=== PATIENT | male | born 1985 | race Asian ===

== ENCOUNTER 2017-02-07 07:44 | Emergency (ER) | payer OTHER ==
[~2017-02-07] VITALS: Ht 177.8 cm; Wt 71.5 kg
[2017-02-07 07:46] VITALS: Ht 177.8 cm; Wt 71.5 kg
[2017-02-07 08:49] LABS: ABNORMAL IP MESSAGE 1; BASOPHILS % 0.3 % (0.0-2.0); EOSINOPHILS # 0.1 10^3/ul (0.0-0.5); EOSINOPHILS % 1.8 % (0.0-7.0); HEMATOCRIT 39.9 % (42.0-52.0); HEMOGLOBIN 13.6 g/dl (14.0-18.0); LYMPHOCYTES # 1.7 10^3/ul (0.8-2.9); LYMPHOCYTES % 24.6 % (15.0-51.0); MEAN CORPUSCULAR HGB CONC 34.1 g/dl (32.0-37.0); MEAN CORPUSCULAR VOLUME 88.1 fl (82.0-101.0); MEAN PLATELET VOLUME 11.4 fl (7.4-10.4); MONOCYTE # 0.6 10^3/ul (0.3-0.9); MONOCYTES % 8.5 % (0.0-11.0); NEUTROPHIL # 4.4 10^3/ul (1.6-7.5); NEUTROPHILS % 64.7 % (39.0-77.0); PLATELET COUNT 91 10^3/UL (140-415); POSITIVE DIFF @See below; RED BLOOD COUNT 4.53 10^6/ul (4.70-6.10); RED CELL DISTRIBUTION WIDTH 11.6 % (11.5-14.5); WHITE BLOOD COUNT 6.8 10^3/ul (4.8-10.8)
[2017-02-07] MEDS ORDERED: SOD CHLORIDE 0.9% 1,000 ML IV STA (08:58)
--- NOTE | 2017-02-07 09:02 | ERD ---
ER Documentation Chief Complaint Date/Time DATE: 02/07/17 TIME: 09:02 Chief Complaint heavy rectal bleeding x this am Hemorrhoidectomy x 6 days ago HPI 31-year-old male status post hemorrhoidectomy [address] Eldridge at [facility], presenting with complaints of rectal bleeding this morning. Since the surgery, he has had some mild bleeding but this morning it was much more severe. He had a bowel movement with heavy bleeding from his rectum but he is unable to quantify how much. Currently the bleeding has stopped. He denies any abdominal pain. No fevers or chills. He has not tried to contact his surgeon's office. He denies any shortness of breath or dizziness. ROS All systems reviewed and are negative except as per history of present illness. Medications Home Meds No Active Prescriptions or Reported Meds Allergies Allergies: Coded Allergies: No Known Allergy (Unverified , 02/07/17) PMhx/Soc History of Surgery: Yes (hemorroidectomy) Anesthesia Reaction: No Hx Neurological Disorder: No Hx Respiratory Disorders: No Hx Cardiac Disorders: No Hx Psychiatric Problems: No Hx Miscellaneous Medical Probl: No Hx Alcohol Use: No Hx Substance Use: No Hx Tobacco Use: No Smoking Status: Never smoker FmHx Family History: No coronary disease, No diabetes Physical Exam Vitals Vital Signs Date Time Temp Pulse Resp B/P Pulse Ox O2 Delivery O2 Flow Rate FiO2 02/07/17 09:53 97.9 99 18 141/65 100 Room Air 02/07/17 07:46 98.3 83 20 93/59 97 Physical Exam Const: Ill-appearing, no apparent distress, nontoxic Head: Atraumatic Eyes: Normal Conjunctiva ENT: Normal External Ears, Nose and Mouth. Neck: Full range of motion. No meningismus. Resp: Clear to auscultation bilaterally Cardio: Regular rate and rhythm, no murmurs Abd: Soft, non tender, non distended. Normal bowel sounds Skin: No petechiae or rashes Back: No midline or flank tenderness Rectal: No active bleeding from the rectum, no external hemorrhoids Ext: No cyanosis, or edema Neur: Awake and alert Psych: Normal Mood and Affect Result Diagram: 02/07/17 0913 02/07/17 0815 Results 24 hrs Laboratory Tests Test 02/07/17 08:15 02/07/17 09:13 White Blood Count 6.810^3/ul Red Blood Count 4.5310^6/ul Hemoglobin 13.6g/dl Hematocrit 39.9% Mean Corpuscular Volume 88.1fl Mean Corpuscular Hemoglobin 30.0pg Mean Corpuscular Hemoglobin Concent 34.1g/dl Red Cell Distribution Width 11.6% Platelet Count 9110^3/UL 75571^3/UL Mean Platelet Volume 11.4fl Neutrophils % 64.7% Lymphocytes % 24.6% Monocytes % 8.5% Eosinophils % 1.8% Basophils % 0.3% Nucleated Red Blood Cells % 0.0/100WBC Neutrophils # 4.410^3/ul Lymphocytes # 1.710^3/ul Monocytes # 0.610^3/ul Eosinophils # 0.110^3/ul Basophils # 0.010^3/ul Nucleated Red Blood Cells # 0.010^3/ul Prothrombin Time 13.1Sec Prothrombin Time Ratio 1.0 INR International Normalized Ratio 0.99 Activated Partial Thromboplast Time 28.6Sec Sodium Level 141mmol/L Potassium Level 4.0mmol/L Chloride Level 106mmol/L Carbon Dioxide Level 24mmol/L Anion Gap 15 Blood Urea Nitrogen 13mg/dl Creatinine 1.13mg/dl Glucose Level 109mg/dl Calcium Level 9.2mg/dl Total Bilirubin 0.9mg/dl Direct Bilirubin 0.00mg/dl Indirect Bilirubin 0.9mg/dl Aspartate Amino Transf (AST/SGOT) 19IU/L Alanine Aminotransferase (ALT/SGPT) 27IU/L Alkaline Phosphatase 66IU/L Total Protein 7.7g/dl Albumin 4.2g/dl Globulin 3.50g/dl Albumin/Globulin Ratio 1.20 Current Medications Medications (Trade) Dose Ordered Sig/John Route PRN Reason Start Time Stop Time Status Last Admin Dose Admin Sodium Chloride (NS) 1,000 ml @ 1,000 mls/hr Q1H STAT IV 02/07/17 08:58 02/07/17 09:57 DC Procedures/MDM CBC: mild thrombocytopenia, no anemia BMP normal Coags normal MDM The patient was observed in the ER with no further episodes of rectal bleeding. Vitals were stable. Labs were notable for mild thrombocytopenia. When I discussed this with the patient, he was aware that he had this problem prior to this visit today. However I do not think he needs a transfusion at this time. I tried to contact his colorectal surgeon, Dr. Eldridge, but never heard back. At this time I think he is stable for discharge. Not suspect perforated viscus. There are no signs of acute surgical abdomen. I recommended he make an appointment with his surgeon for tomorrow. Return precautions were discussed at length. He was advised to return if he has bleeding that does not stop. Departure Diagnosis: Primary Impression: Rectal bleeding Additional Impression: History of hemorrhoidectomy Condition: Stable CAMERON MILLS MD Feb 07, 2017 09:02
[2017-02-07 09:08] LABS: INR 0.99; PROTIME 13.1 Sec (12.2-14.2)
[2017-02-07 09:09] LABS: PARTIAL THROMBOPLASTIN TIME 28.6 Sec (25.0-35.0)
[2017-02-07 09:15] LABS: ALBUMIN 4.2 g/dl (3.3-4.9); ALBUMIN/GLOBULIN RATIO 1.2; BILIRUBIN,INDIRECT 0.9 mg/dl (0-1.1); BILIRUBIN,TOTAL 0.9 mg/dl (0.2-1.3); CALCIUM 9.2 mg/dl (8.4-10.2); CREATININE 1.13 mg/dl (0.61-1.24); TOTAL PROTEIN 7.7 g/dl (6.1-8.1)
[2017-02-07 09:53] VITALS: BP 141/65; PULSE 99; RESP 18; TEMP 97.9
== END 2017-02-07 09:59 | disposition home or self-care (01) ==
LOC: E/R 07:44
DX: K62.5 Hemorrhage of anus and rectum (principal); Z87.19 Personal history of other diseases of the digestive system
CPT/HCPCS: 36415; 80053; 85025; 85049; 85610; 85730; J7030; Z7502; 99284

== ENCOUNTER 2018-04-29 18:09 | Emergency (ER) | payer OTHER ==
[~2018-04-29] VITALS: Ht 172.7 cm; Wt 72.1 kg
[2018-04-29 18:11] VITALS: BP 144/73; Ht 172.7 cm; Wt 72.1 kg
--- NOTE | 2018-04-29 18:35 | ERD ---
ER Documentation Chief Complaint Chief Complaint BACK PAIN INJURED WHILE SLEDDING HPI 32-year-old male, presents to the emergency department, complaining of persistent lower back pain after hitting his coccygeal area while the patient was sledding yesterday. It is dull, constant, 6/10, worsened by deep palpation. The patient refers normal bowel movements, normal diuresis, no hematuria, no open wounds. ROS All systems reviewed and are negative except as per history of present illness. Medications Home Meds Active Scripts Ibuprofen* (Motrin*) 600 Mg Tab, 600 MG PO Q8, #15 TAB Prov:ONEL DE LOS SANTOS MD 04/29/18 Allergies Allergies: Coded Allergies: No Known Allergy (Unverified , 02/07/17) PMhx/Soc History of Surgery: Yes (hemorroidectomy) Anesthesia Reaction: No Hx Neurological Disorder: No Hx Respiratory Disorders: No Hx Cardiac Disorders: No Hx Psychiatric Problems: No Hx Miscellaneous Medical Probl: No Hx Alcohol Use: No Hx Substance Use: No Hx Tobacco Use: No Physical Exam Vitals Vital Signs Date Temp Pulse Resp B/P (MAP) Pulse Ox O2 O2 Flow FiO2 Time Delivery Rate 04/29/18 98.6 58 20 100 Room Air 20:45 04/29/18 97.1 72 18 144/73 99 18:11 (96) Physical Exam Patient alert, oriented, vital signs stable. HEENT: Normocephalic, atraumatic. EYES: PERRLA, EOMI, Sclera and conjunctiva appear normal. EARS: Canals clear, tympanic membranes WNL. THROAT: Normal oropharynx. NECK: Supple, No lymphadenopathy. Full ROM without pain or tenderness. HEART: RRR, no rubs, murmurs, clicks or gallops. LUNGS: Clear to auscultation. ABDOMEN: Soft, non-tender without masses or hepatosplenomegaly. Coccygeal area: Tenderness to palpation, mild ecchymosis to inspection, no crepitus or gross deformity, no signs of infection. EXTREMITIES: No edema bilaterally. BACK: Full ROM, no deformity, normal back exam NEURO: Cranial nerves grossly intact, no motor or sensory deficit Procedures/MDM Differential diagnosis include but not limited to: Soft tissue contusion, sprain/strain, herniated disk, muscle spasm, fracture. Neurovascular exam grossly intact. no clinical findings suggestive of fracture, no acute deformity, no edema, no rashes. Physical examination and clinical presentation consistent most likely with coccygeal contusion. During the ED course the patient remained stable, without complaints. Results and clinical impression discussed with patient who agrees with management. The patient is stable to be treated outpatient and will be discharged home with recommendations and close monitoring The patient was instructed to follow up with the primary care provider in the next 48h. If symptoms persist, worsen or new symptoms develop, then patient should return to the ED immediately. Instructions explained and given to patient with acknowledgment and demonstrated understanding. Disclaimer: Inadvertent spelling and grammatical errors are likely due to EHR/dictation software use and do not reflect on the overall quality of patient care. Also, please note that the electronic time recorded on this note does not necessarily reflect the actual time of the patient encounter. Departure Diagnosis: Primary Impression: Coccygeal injury Condition: Stable Additional Instructions: Thank you very much for allowing us to participate in your care. Your health and safety is our top priority at [facility]. Call your primary care doctor TOMORROW for an appointment during the next 2-4 days and bring all the information and medications prescribed. Have prescriptions filled and follow precisely the directions on the label. If the symptoms get worse and your provider is unavailable, return to the Emergency Department immediately. ONEL DE LOS SANTOS MD Apr 29, 2018 18:34
[2018-04-29] MEDS ORDERED: IBUP-1542 PO (20:24)
[2018-04-29 20:45] VITALS: PULSE 58; RESP 20
== END 2018-04-29 20:42 | disposition home or self-care (01) ==
LOC: FTE 18:09
DX: S39.92XA Unspecified injury of lower back, initial encounter (principal); W22.8XXA Striking against or struck by other objects, initial encounter; Y92.9 Unspecified place or not applicable
CPT/HCPCS: 72220; Z7502